=== PATIENT | female | born 1960 | race Caucasian/White ===

== ENCOUNTER 2019-04-28 17:30 | Inpatient (IN) | payer OTHER ==
[~2019-04-28] VITALS: Ht 160 cm; Wt 61.2 kg
[2019-04-28 17:35] VITALS: BP 137/87
[2019-04-28] MEDS ORDERED: PROAIR HFA8.5 GM INH ×4 (17:40→21:27)
[2019-04-28 18:27] LABS: BE 0.1 mmol/L (-2 to +3); PCO2 42.3 mmHg (35.0-45.0); pH 7.393 (7.340-7.450)
[2019-04-28 18:27] LABS: ABSOLUTE BASOPHILS 0.1 thou/uL (0.0-0.2); ABSOLUTE EOSINOPHILS 0.5 thou/uL (0.0-0.7); ABSOLUTE LYMPHOCYTES 1.6 thou/uL (0.8-5.3); ABSOLUTE MONOCYTES 0.9 thou/uL (0.0-1.2); ABSOLUTE NEUTROPHILS 6.5 thou/uL (1.6-8.1); BASOPHILS 0.6 %; EOSINOPHILS 5.6 %; HEMATOCRIT 48.7 % (37.0-47.0); HEMOGLOBIN 16.7 gm/dL (12.0-15.0); LYMPHOCYTES 16.4 %; MCHC 34.3 g/dL (28.0-37.0); MCV 90.1 fL (80.0-100.0); MONOCYTES 9.3 %; MPV 8.6 fl. (7.2-11.1); NUCLEATED RBCS 0 /100WBC; PLATELET COUNT* 219 thou/uL (150-400); POLYS 68.1 %; RDW-CV 14.4 % (10.5-14.5); WBC 9.6 thou/uL (4.0-11.0)
[2019-04-28 18:30] LABS: PO2 50.1 mmHg (75.0-100.0)
[2019-04-28 18:33] LABS: CALCIUM 8.7 mg/dL (8.5-10.1); POTASSIUM 3.9 mmol/L (3.5-5.1)
[2019-04-28 18:48] LABS: ALBUMIN 3.6 g/dL (3.4-5.0); TOTAL BILIRUBIN 0.3 mg/dL (<0.1-1.0); TOTAL PROTEIN 7.2 g/dL (6.4-8.2)
--- NOTE | 2019-04-28 21:14 | NUR ---
WENT TO TAKE PT TP FLOOR. SHE STATED SINCE HER BOYFRIEND WAS NOT BEING ADMITTED SHE WANTED TO SIGN SELF OUT. DR PERAZA SPOKE TO PT AND SHE IS STILL INSISTANT ON LEAVING.
[2019-04-28] MEDS ORDERED: PREDNISONE50 MG PO ×3 (21:16→21:27)
[2019-04-28 21:36] VITALS: BP 144/80
--- NOTE | 2019-04-29 14:32 | EKG ---
[place] [address] ELECTROCARDIOGRAM REPORT Name: ROZ LAGOS Room: [place] [address] DIS IN M.R.#: [id number] Admission: 04/28/19 Attend Phys: Krunal Elliott MD Discharge: 04/28/19 Date of : 58 Report #: [id number] THIS REPORT FOR: //name// [facility] ED Test Date: 2019-04-28 Test Time: 17:45:39 Pat Name: ROZ LAGOS Department: Room: [facility] Gender: F Senior Accounting Analyst: MS : 1960 Requested By: Pari Soto Order Number: [id number] MD: Francisco Sung Measurements Intervals [place] Rate: 97 P: -61 ME: 109 QRS: 80 QRSD: 84 T: 67 QT: 319 QTc: 405 Interpretive Statements Sinus or ectopic atrial rhythm Short ME interval No previous ECG available for comparison Electronically Signed On 04-29-2019 14:32:16 [employer] by Francisco Sung [email or web address] <ELECTRONICALLY SIGNED> By: Francisco Sung MD, [facility] 04/29/19 1432 1745 1745 Francisco Sung MD, FAC /EPI
== END 2019-04-28 21:36 | disposition left against medical advice (07) | DRG 192 ==
LOC: M.ERS 17:30 → M.TBA-ER 18:45
PROVIDERS: Personal Emergency Response Attendant; ADMIT Internal Medicine
DX: J44.9 Chronic obstructive pulmonary disease, unspecified (principal); J40 Bronchitis, not specified as acute or chronic; Z79.899 Other long term (current) drug therapy; Z53.29 Procedure and treatment not carried out because of patient's decision for other reasons